=== PATIENT | female | born 1980 | race Caucasian/White ===

== ENCOUNTER → 2016-08-16 | Outpatient (CLI) | payer OTHER ==
[~2016-08-16] MED LIST: ATARAX PO; AUGMENTIN PO; BENTYL20 MG PO; CORTISPORIN-TC10 M1 AD; DARVOCET-N 1001 TAB PO; FLEXERIL PO; IBUPROFEN PO; KEFLEX500 M1 PO; LORTAB 5/500 TA1 TA1 PO; MONODOX100 MG PO; MOTRIN400 M1 PO; NO MEDICATIONS; PREDNISONE PO; PREVACID PO; VOLTAREN50 MG PO
--- NOTE | ~2016-08-16 | MR84 ---
[facility] A Service of [facility] & [facility] RADIOLOGY TEXT RESULTS PATIENT: CHERRY AGARWAL [facility] : 82 UNIT #: [id number] AGE: [address]: JO ANN ALDANA APRN SEX: F ORDER DR: [id number] [address] [address] [id number] O MR#: [id number] Acc #: [id number] NAME: CHERRY AGARWAL : 1980 SEX: F STUDY DATE/TIME: 08/16/2016 9:18 [facility] ROOM: STUDY DESCRIPTION: MR Hip Wo Contrast Rt Attending Physician: Jo Ann Aldana Referring Physician: Jo Ann Aldana Ordering Physician: Physician Non-Staff Primary Care Physician: Primary Care Physician No MRI CENTER REPORT This report is preliminary unless electronic signature is present. EXAM MRI pelvis and hips, 08/16/2016. HISTORY Order states right hip pain, labral tear. History sheet states chronic life time of right hip pain. Born with hips out of place. Right hip is now popping louder when walking and flexing for the past year. Popped out of joint once in the past year, but she did back in place, but she popped it back in place on her own. No physical therapy. No injury or related surgery. FINDINGS The hips show no effusion, fracture, osteonecrosis, or visible arthrosis. There is no direct or indirect evidence of labral pathology. There is no obvious change of hip dysplasia, or chronic Htzk-Yssav-Pwmcaov disease. The remainder of the bony pelvis, sacrum, SI joints are normal. Ischium tuberosities, gluteal tendons, and sacrum SI joints are within normal limits. There is very minimal asymmetric edema surrounding the right iliac psoas tendon compared to the left. Given reported symptoms, correlate for snapping right iliac psoas tendon. The iliopectineal eminence on the right is not prominent. No gross lower lumbar abnormality is noted. No internal pelvic pathology or hernia is noted. There is no direct or indirect evidence of labral pathology. IMPRESSION STS. [facility] A Service of [facility] & [facility] RADIOLOGY TEXT RESULTS PATIENT: CHERRY AGARWAL LOCATION: [facility] #: [id number] : [birth year] UNIT #: [id number] AGE: [address]: JO ANN ALDANA APRN SEX: F ORDER DR: 1. There is no non - arthrographic evidence of labral pathology. 2. No definite pathology is noted. 3. There may be very minimal asymmetric right iliopsoas peritendinous edema. Given reported symptoms, correlate for snapping iliopsoas tendon pathology. 4. Presumed physiologic right adnexal cyst. Dictated by... Jacinta Rojo M.D. THIS IS AN ELECTRONICALLY VERIFIED REPORT Jacinta Rojo M.D. at 08/17/2016 2:13 PM SENTHIL/negrito TD: 08/17/2016 13:05 JOB #: [id number] MRI [facility]ENTER REPORT Page 1 of 1
== END | disposition home or self-care (01) ==
LOC: SMRI 08:54
DX: S73.101A Unspecified sprain of right hip, initial encounter (principal); M25.551 Pain in right hip
CPT/HCPCS: 73721

== ENCOUNTER 2016-11-07 12:25 | Emergency (ER) | payer OTHER | END 2016-11-07 13:33 | disposition home or self-care (01) | LOC: SED 12:25 | DX: L23.7 Allergic contact dermatitis due to plants, except food (principal); Z90.49 Acquired absence of other specified parts of digestive tract; Z98.51 Tubal ligation status; F17.210 Nicotine dependence, cigarettes, uncomplicated; Z23 Encounter for immunization | CPT/HCPCS: 90471; 90715; 99282 ==